=== PATIENT | male | born 1930 | race Caucasian/White ===

== ENCOUNTER 2019-01-10 12:54 | Inpatient (IN) ==
--- NOTE | 2019-01-10 13:09 | EKG Report ---
Test Performed on : 01/10/2019 1:03:08 PM Test Reason : chest pain Blood Pressure : / mmHG Vent. Rate : 092 BPM Atrial Rate : 092 BPM P-R Int : 226 ms QRS Dur : 146 ms QT Int : 408 ms P-R-T Axes : -16 -81 073 degrees QTc Int : 504 ms Sinus rhythm. with 1st degree AV block. Left axis deviation Right bundle branch block Septal infarct (cited on or before 07-JAN-2019) Abnormal ECG When compared with ECG of 07-JAN-2019 16:44, (Unconfirmed) WA interval has increased Unconfirmed Result
--- NOTE | 2019-01-10 13:30 | Diag Imaging Result Doc PS360 ---
EXAM: CHEST-2 VIEWS 01/10/2019 HISTORY: chest pain TECHNIQUE: AP upright and lateral chest COMMENT: There is apparent atelectatic change in both lung bases which has not changed since 01/07/2019. IMPRESSION: Bibasilar atelectasis. Electronically signed by Raji Galaviz 01/10/2019 1:27 PM
[2019-01-10 13:40] LABS: BASO# 0.03 X1000 (0.0-0.2); BASO% 0.4 % (0.0-0.8); EOS# 0.16 X1000 (0.0-0.7); EOS% 2.3 % (0.0-10.0); HEMATOCRIT 41.4 % (42.0-52.0); HEMOGLOBIN 13.6 g/dL (14.0-18.0); LYMPH# 1.52 X1000 (1.2-3.4); LYMPH% 22.2 % (20.5-51.1); MCH 31.5 PG (27-31); MCHC 32.9 g/dL (33-37); MCV 95.8 FL (81-99); MONO# 0.73 X1000 (0.11-0.59); MONO% 10.7 % (1.7-9.3); MPV 11.5 FL (7.4-10.4); NEUT% 64.4 % (42.2-75.2); PLT 157 X1000 (130-400); RBC 4.32 XMIL (4.7-6.1); WBC 6.84 X1000 (4.8-10.8)
[2019-01-10 13:48] LABS: INR 1.04; PROTIME 14.5 Seconds (11.0-16.0)
[2019-01-10 13:49] LABS: PTT 31.1 Seconds (22.3-41.8)
[2019-01-10 14:03] LABS: AGAP 14; ALB/GLOB RATIO 1.8; ALBUMIN 4.1 g/dL (3.5-5.0); ALKALINE PHOSPHATASE 42 U/L (32-122); BUN 20 mg/dL (8-22); CHLORIDE 103 mmol/L (98-107); CK PROFILE 128 U/L (24-204); COSMO 284; CREATININE 1.1 mg/dL (0.7-1.2); ESTIMATED GFR > 60; GLUCOSE 107 mg/dL (70-104); GOT 32 U/L (10-34); GPT 28 U/L (10-44); POTASSIUM 4.5 mmol/L (3.5-5.1); SODIUM 141 mmol/L (136-145); TCO2 24 mmol/L (25-35); TOTAL BILIRUBIN 0.66 mg/dL (0.20-1.00); TOTAL PROTEIN 6.4 g/dL (6.3-8.3)
[2019-01-10] MEDS ORDERED: MORPHINE IV PRN (15:14)
[2019-01-10] MEDS ORDERED: ZOFRAN IV PRN (15:14)
[2019-01-10] MEDS ORDERED: TYLENOL PO PRN (15:14)
[2019-01-10] MEDS ORDERED: NITROGLYCERIN SL PRN (15:14)
[2019-01-10] MEDS ORDERED: LASIX IV ONE (16:54)
[2019-01-10] MEDS ORDERED: SYSTANE EYE DROPS BOTH EYES PRN (16:57)
[2019-01-10] MEDS ORDERED: TUMS PO PRN (16:57)
[2019-01-10] MEDS ORDERED: COLACE PO PRN (16:57)
--- NOTE | 2019-01-10 17:45 | HISTORY AND PHYSICAL ---
PRIMARY CARE PROVIDER: Dr. Russ Love and KAMLESH Arias, located in [place] at [facility]. CHIEF COMPLAINT: Left chest sharp pain. HISTORY OF PRESENT ILLNESS: Mr. Nate Mccoy is an 88-year-old male who most recently had a left heart catheterization on November 26, 2018 which showed 3-vessel coronary disease with 100% LAD to RCA and around 50% to 60% in the circumflex, with apparent difficulties trying to get in a stent, so that was unable to be performed. He was recommended or referred to go to Dr. Edmund Espinoza at [facility], but the patient has so far opted out on having bypass surgery. He states that he has had some difficulties, he feels like, since early September after eating bad chicken and having significant dehydration from that. He spent 2 nights at [facility] there and has slowly ever since been having some issues with shortness of breath at rest mostly, and with activity. He has noticed he has had more lower extremity swelling. The right is greater than the left, without tenderness. That has worsened over the last 6 weeks. He has not had any good sleep over the last 2 nights, which he feels can be possibly from his nerves of knowing that he has coronary disease. He states that today around 11:45 he was trying to take some pepperoni pizza out of a Saran [employer] and developed a sudden onset of sharp pain in his left chest. It felt like a pin going straight through his chest, and the pain was 10/10. It lasted for about 30 seconds and then went away, but it was enough to scare him, given his coronary disease, to seek medical attention. His first set of cardiac enzymes here are negative. He does have a medical history of cardiomyopathy or systolic congestive heart failure with an ejection fraction of 40%. His proBNP is elevated. He does have swelling in the lower extremities, with the right greater than the left, but there is really no pulmonary edema on the chest x-ray. So, we are going to admit him overnight for chest pain observation and consult Cardiology. No ST elevations on the EKG. PAST MEDICAL HISTORY: 1. Three-vessel coronary artery disease 100% in the LAD and the RCA and in the circumflex 50% to 60%. No cardiac interventions. 2. Hypertension. 3. Cardiomyopathy. 4. Systolic congestive heart failure with ejection fraction of 40%. 5. Hyperlipidemia. 6. BPH. 7. GERD. 8. Chronic constipation. 9. Nuclear radiation exposure in the past at [facility] in the [facility]. PAST SURGICAL HISTORY: He has had 3 right inguinal hernia repairs and 1 left inguinal hernia repair, cholecystectomy, melanoma removed off the right chest wall, bilateral cataracts along with silicone implants in the eyes. SOCIAL HISTORY: He quit smoking 40 years ago. Prior to that he smoked about 20 years, and it was just 1 cigarette per day. He states he is Hindu, and he drinks white wine on a very rare occasion, maybe once a year or less than that. Denies any alcohol abuse other that just that very small amount of white wine that he can drink from time to time. He was a man in the [employer]. 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 He said he started the around the [place] War and has never been in a ship. He cannot swim. He is currently living in [place] and still driving. FAMILY HISTORY: Mother's side of the family: She from old age, but her father from kidney disease and coronary disease. His father from heart failure at 69. His father's father also had congestive heart failure. His sister had sclerosing cholangitis and is now status post liver transplant. His brother had bladder cancer. ALLERGIES: No known drug allergies. HOME MEDICATIONS: 1. Altace 5 mg p.o. twice daily. 2. Aspirin 81 mg p.o. daily 3. Dutasteride 0.5 mg p.o. daily. 4. Atorvastatin 40 mg p.o. daily. 5. Docusate sodium 1 to 3 tabs every 24 hours p.r.n. 5. Systane eye drops p.r.n. 6. Metoprolol 25 mg p.o. twice daily. 7. Tums 200 mg as needed. REVIEW OF SYSTEMS: A 14-point review of systems was completed, and all are negative except for those mentioned above in the HPI. PHYSICAL EXAMINATION: VITAL SIGNS: Temperature 98.0, heart rate 92, respiratory rate 16, blood pressure 154/83, O2 saturation 98% on room air. GENERAL: Mr. Nate Mccoy is an 88-year-old male. He is in no acute distress. He is sitting comfortably on the side of the bed. He is able to answer all questions appropriately. He is very talkative. HEENT: Atraumatic, normocephalic. Pupils equal, round, and reactive to light. Extraocular movements intact. Mucous membranes are moist. NECK: Trachea midline. CARDIOVASCULAR: S1 and S2, regular rate and rhythm. No rubs, gallops or murmurs. He has +2 lower extremity edema, but the right seems to be a little more than the left. He has +2 radial pulses, +2 dorsalis pedis pulses, mild JVD. Carotid bruits negative. HEENT: Atraumatic, normocephalic. Pupils equal, round, and reactive to light. Extraocular movements intact. Mucous membranes are moist. NECK: Trachea midline. PULMONARY: Clear to auscultate. Bilateral breath sounds. No accessory muscle use or work of breathing noted. GI: Soft, nontender, nondistended. Positive bowel sounds x4. EXTREMITIES: Moves all extremities equally. Full range of motion. NEUROLOGIC: A O x3. Follows commands. Sensory is intact. SKIN: Warm, dry and intact. LABORATORY DATA: White blood cells 6000, hemoglobin 13, hematocrit 41, platelet count 157. INR is 1.04. Sodium is 141, potassium 4.5, BUN 20, creatinine 1.1, glucose 107, calcium 9.0. Bilirubin 0.66, AST 32, ALT 28, CK 128, troponin (one set) 0.014, proBNP 9924, albumin 4.1. IMAGING: Chest x-ray showed bibasilar atelectasis. EKG: Sinus rhythm with a first-degree AV block. Rate is 92, QTc 504. ASSESSMENT/PLAN: 1. Atypical chest pain that was very short lived, but this is in the setting of a 3-vessel severe coronary artery disease in a patient who has not had any type of revascularization intervention and is currently turning down coronary artery bypass grafting. So we will continue with aspirin, statin and beta servando and consult Cardiology. He states that the chest pain lasted for about 30 seconds and then essentially went away, and he has not felt it since. He feels fine now. 2. It is looking he could be having some acute on chronic systolic congestive heart failure. He does have some mild jugular venous dilatation, and his proBNP is up. He has not had good sleep over the last 2 nights, and he has more swelling in the lower extremities, so we will probably give him a dose of Lasix IV just a 1-time 40 mg dose, and maybe he can get a little sleep tonight with some fluid off. Chest x-ray looks okay. There is no obvious pulmonary edema. 3. Hypertension. Will continue home medications. Apparently he just recently started the Altace a couple of months ago, and he says he has a chronic cough, and he still has a cough, so we may need to consider changing that medicine. 4. Benign prostatic hypertrophy. Continue home medications. 5. Hyperlipidemia. Continue statin. 6. Constipation. Continue home medications. 7. Gastroesophageal reflux disease. Continue with proton pump inhibitor. 8. Deep venous thrombosis prophylaxis - Lovenox. Dictated by KAMLESH Govea for Edilberto King MD cc: KAMLESH Govea MD
[2019-01-10] MEDS: XANAX PO PRN (18:13)
[2019-01-10] MEDS ORDERED: ALTACE PO SCH (21:00)
[2019-01-10] MEDS: ALTACE PO SCH (21:33)
[2019-01-10] MEDS: TOPROL XL PO SCH (21:33)
[2019-01-11 05:53] LABS: BASO# 0.03 X1000 (0.0-0.2); BASO% 0.5 % (0.0-0.8); EOS# 0.17 X1000 (0.0-0.7); EOS% 2.6 % (0.0-10.0); HEMATOCRIT 41.6 % (42.0-52.0); HEMOGLOBIN 13.5 g/dL (14.0-18.0); LYMPH# 1.41 X1000 (1.2-3.4); LYMPH% 21.5 % (20.5-51.1); MCH 31.7 PG (27-31); MCHC 32.5 g/dL (33-37); MCV 97.7 FL (81-99); MONO# 1.06 X1000 (0.11-0.59); MONO% 16.1 % (1.7-9.3); MPV 11.6 FL (7.4-10.4); NEUT% 59.3 % (42.2-75.2); PLT 150 X1000 (130-400); RBC 4.26 XMIL (4.7-6.1); RDW 13.1 % (11.5-14.5); WBC 6.57 X1000 (4.8-10.8)
[2019-01-11] MEDS: PRILOSEC PO SCH (06:06)
[2019-01-11 06:34] LABS: INR 1.08; PROTIME 14.8 Seconds (11.0-16.0)
[2019-01-11 06:35] LABS: PTT 31.8 Seconds (22.3-41.8)
[2019-01-11 06:36] LABS: AGAP 13; ALB/GLOB RATIO 1.6; ALBUMIN 3.9 g/dL (3.5-5.0); ALKALINE PHOSPHATASE 42 U/L (32-122); BUN 23 mg/dL (8-22); CHLORIDE 102 mmol/L (98-107); CHOLESTEROL 93 mg/dL (0-200); COSMO 288; CREATININE 1.3 mg/dL (0.7-1.2); ESTIMATED GFR 52; GLUCOSE 93 mg/dL (70-104); GOT 28 U/L (10-34); GPT 23 U/L (10-44); HDL 36 mg/dL (35-55); LDL 44 mg/dL; MAGNESIUM 2.1 mg/dL (1.5-2.7); POTASSIUM 3.9 mmol/L (3.5-5.1); SODIUM 143 mmol/L (136-145); TCO2 28 mmol/L (25-35); TOTAL BILIRUBIN 0.68 mg/dL (0.20-1.00); TOTAL PROTEIN 6.3 g/dL (6.3-8.3); TRIGLYCERIDES 67 mg/dL (39-160); VLDL 13 mg/dL
--- NOTE | 2019-01-11 08:01 | EKG Report ---
Test Performed on : 01/11/2019 06:36:01 AM Test Reason : chest pain Blood Pressure : / mmHG Vent. Rate : 082 BPM Atrial Rate : 082 BPM P-R Int : 232 ms QRS Dur : 156 ms QT Int : 442 ms P-R-T Axes : 032 -80 073 degrees QTc Int : 516 ms Sinus rhythm. with 1st degree AV block. Possible Left atrial enlargement Left axis deviation Right bundle branch block Septal infarct (cited on or before 07-JAN-2019) Abnormal ECG When compared with ECG of 10-JAN-2019 17:57, (Unconfirmed) aberrant conduction. is no longer present Unconfirmed Result
--- NOTE | 2019-01-11 08:24 | Diag Imaging Result Doc PS360 ---
EXAM: CHEST-2 VIEWS 01/11/2019 HISTORY: Chest Pain TECHNIQUE: PA and lateral chest COMMENT: Compared to the previous study of 01/10/2019 the lungs are slightly more hyperinflated. There continues to be some apparent atelectasis or pneumonia in the left lower lobe as well as pleural effusions bilaterally. There is atelectasis or pneumonia in the right middle lobe. IMPRESSION: Lateral pleural effusions and atelectasis versus pneumonia. Electronically signed by Raji Galaviz 01/11/2019 8:21 AM
--- NOTE | 2019-01-11 08:36 | EKG Report ---
Test Performed on : 01/10/2019 5:57:51 PM Test Reason : ED. NO EKG ORDER FOR MUSE Blood Pressure : / mmHG Vent. Rate : 096 BPM Atrial Rate : 096 BPM P-R Int : 216 ms QRS Dur : 146 ms QT Int : 396 ms P-R-T Axes : -16 -83 076 degrees QTc Int : 500 ms Sinus rhythm. with 1st degree AV block. with premature atrial complexes. with aberrant conduction. Left axis deviation Right bundle branch block Septal infarct (cited on or before 07-JAN-2019) Abnormal ECG When compared with ECG of 10-JAN-2019 13:03, (Unconfirmed) aberrant conduction. is now present Unconfirmed Result
[2019-01-11] MEDS: LOVENOX SUBQ SCH (08:41)
[2019-01-11] MEDS: ALTACE PO SCH (08:41)
[2019-01-11] MEDS: TOPROL XL PO SCH ×2 (08:41→20:27)
[2019-01-11] MEDS: AVODART PO SCH (08:46)
[2019-01-11] MEDS ORDERED: ALTACE PO SCH (09:00)
[2019-01-11] MEDS ORDERED: LIPITOR PO SCH (09:00)
[2019-01-11] MEDS ORDERED: ASPIRIN PO SCH (09:00)
[2019-01-11] MEDS ORDERED: LASIX PO SCH (10:00)
--- NOTE | 2019-01-11 10:28 | CARDIOLOGY CONSULTATION ---
DATE: 01/11/2019 FAMILY PHYSICIAN: Dr. Kristofer Love. HISTORY OF PRESENT ILLNESS: An 88-year-old gentleman who has had a left heart catheterization 11/26/2018 which revealed significant 3-vessel disease. Patient was evaluated at [facility] by Dr. Obrien and the patient opted not to have any bypass surgery and to continue with medical treatment. He is admitted with having some left-sided sharp chest discomfort and shortness of breath and the left-sided pain he said was sharp which worried him. He came to the emergency room and was [place]. [place] [address] and he was given IV Lasix. Chest x-ray suggestive of pneumonia, heart failure. As far as his symptoms are concerned, he does not complain of having any palpitations. He has been having chronic cough which has been there for some time and he has a dry hacking cough as well. There are no palpitations. There is no dizziness or syncope. Electrocardiogram revealed no acute ST-T changes. REVIEW OF SYSTEMS: A 14-point review of systems was done. Gastrointestinal: There is no history of nausea, vomiting, diarrhea. There is no history of hematemesis or melena. Central nervous system: No focal weakness to suggest a CVA or TIA. Genitourinary: There is no dysuria or hematuria. PAST MEDICAL HISTORY: 1. Coronary artery disease, cardiac catheterization 11/26/2018 revealed total occlusion of the left anterior descending artery, total occlusion of the right coronary artery. Percutaneous intervention was attempted at [facility], and bypass grafting was recommended. The mid left anterior descending artery was diffusely diseased as well. Patient was evaluated by Dr. Obrien. Patient opted to be managed medically. 2. 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 3. Chronic cough. 4. Systolic heart failure. 5. Hypertension. 6. Abnormal electrocardiogram. 7. History of dizziness. 8. Hyperlipidemia. 9. Gastroesophageal reflux disease. 10. Constipation. 11. Nuclear radiation exposure in the past. This was in the [facility]. 12. He had 3 right inguinal hernia repairs, 1 left inguinal repair. 13. Cholecystectomy. 14. Melanoma removal from the right chest. 15. Bilateral cataract surgery. 16. Silicone implants in the eyes. SOCIAL HISTORY: He quit smoking 40 years ago. HOME MEDICATIONS: 1. Altace 5 b.i.d. 2. Enteric-coated aspirin 81. 3. Atorvastatin 40. 4. Sustain eyedrops. 5. Metoprolol 25 b.i.d. 6. Tums. PHYSICAL EXAMINATION: Vital Signs: Blood pressure was 150/80. Cardiovascular System: Normal jugular venous pressure. First and second heart sounds were heard. There is a faint systolic murmur. Respiratory System: Normal air entry. There was course scattered crepitations. Abdomen: Soft, nontender. There was no guarding or rigidity. Bowel sounds were heard. Central nervous system: Alert and oriented, was moving all 4 extremities. Extremities: No pedal edema. HEENT: Atraumatic, normocephalic. Pupils were equal, round, reacting to light. LABORATORY EXAMINATION: BUN 20, creatinine 1.1, glucose 107. WBC 6, hemoglobin 13, hematocrit 41, platelet count of 157,000. IMAGING: Chest x-ray. Bibasilar atelectasis and effusion was noted. ASSESSMENT: 1. Mr. Nate Mccoy is an 88-year-old gentleman who has severe coronary artery disease and the patient was evaluated at [place] with Dr. Obrien. Patient decided to be treated medically. 2. He also has a history of hypertension, ischemic cardiomyopathy, chronic cough. RECOMMENDATIONS: 1. Patient's electrocardiogram did not reveal any acute ST-T changes. There was first-degree AV block, right bundle branch block with left anterior hemiblock. 2. Chest x-ray suggestive of atelectasis versus pneumonia in addition to effusion. He has had chronic cough. There is no history of aspiration. However, we will get a CT scan of his chest without contrast to assess for infiltrate, pneumonia, especially in the middle lobe, and we will start him on Levaquin 500 mg a day. 3. As far as ischemia cardiomyopathy is concerned, he is on beta blockers. We will discontinue the ramipril given his chronic cough and put him on Cozaar 50 mg a day in addition to Lasix 20 mg a day. I have not made any other changes. We will plan to manage him medically. Thank you for the consult. We will follow hospital course. cc: Kevin Landeros MD
[2019-01-11] MEDS: COZAAR PO SCH (10:34)
--- NOTE | 2019-01-11 12:08 | Diag Imaging Result Doc PS360 ---
EXAM: CT THORAX W/O CONTRAST HISTORY: dyspnea, pneumonia TECHNIQUE: CT chest without contrast COMPARISON: None. FINDINGS: There is a small right pleural effusion measuring 2.5 cm posteriorly and inferiorly and an even smaller left pleural effusion measuring 1.0 cm. No cardiomegaly. No thoracic aortic aneurysm. Prominent atherosclerosis. There are multiple calcified mediastinal and hilar lymph nodes with scattered granuloma. There are mildly prominent noncalcified mediastinal nodes. The left hemidiaphragm is elevated. There is atelectasis in the lower lobes, left greater than right. There may be small underlying infiltrates as well. IMPRESSION: 1.Small pleural effusions 2.Prominent atherosclerosis 3.There is evidence of a prior granulomatous infection 4.Basilar atelectasis and possibly small underlying infiltrate in the left lower lobe This exam was performed using automated exposure control, adjustment of mA or kV according to patient size, and/or use of iterative reconstruction technique. Electronically signed by Damir Butt 01/11/2019 12:06 PM
--- NOTE | 2019-01-11 12:29 | PROVIDER DOCUMENTATION ---
This chart was entered by Josiane Thompson Scribe, acting as scribe for Olga Miranda MD. HPI-Chest Pain - General Chief Complaint: Chest Pain Stated Complaint: chest pain Time Seen by Provider: 01/10/19 13:05 Source: patient, EMS Allergies/Adverse Reactions: Patient Allergies Allergy/AdvReac Type Severity Reaction Status Date / Time No Known Allergies Allergy Verified 01/07/19 18:25 Home Medications: Home Medication List Medication Instructions Recorded Confirmed Last Taken Type ATORVAstatin [Lipitor] 40 mg PO DAILY 01/07/19 01/07/19 Unknown History Dutasteride 0.5 mg PO 01/07/19 Unknown History Metoprolol Succinate E.r. [Toprol 25 mg PO DAILY 01/07/19 01/07/19 Unknown History Xl] Ramipril [Altace] 2.5 mg PO DAILY 01/07/19 01/07/19 Unknown History Triamterene/Hydrochlorothiazid 37.5 mg PO DAILY 01/07/19 01/07/19 Unknown History [Triamterene-Hctz 37.5-25 mg Tb] - History of Present Illness-CP Nature of Presenting Problem: 88 yowm presents to the ed with c/o chest pain brief (lasted 2 minutes)1 hr prior. pt had sob with pain but sts feels good and all sx are resolved. pt on exam is nontoxic in appearance Location: reports: other (left anterior) Chest Pain Radiation: reports: no radiation Quality of Pain: reports: aching Severity in ED: mild Onset/Duration: 1-3 hours ago Timing: gone now Context/Activities at Onset: reports: light activity Modifying Factors: improves with: nothing Associated Symptoms: reports: shortness of breath. denies: back pain, dizziness , fatigue, fever/chills, nausea, swelling/lump in chest, syncope, vomiting Nitro Today/Relief: no nitro taken today Aspirin Treatment Today: 81 mg x 1 (home), 81 mg x 3 (ems), provided at home, provided by EMS Prior Chest Pain/Cardiac Workup: reports: cardiac cath, other (pt has long cardiac hx) Similar Symptoms Previously?: Yes Recently Seen Here or By Another Healthcare Provider: No Review of Systems - Adult - REVIEW OF SYSTEMS - ADULT Constitutional: denies: chills, fever, fatique Eyes: reports: no symptoms reported Ears, Nose, Mouth & Throat: reports: no symptoms reported Cardiovascular: reports: see HPI, chest pain. denies: palpitations, syncope Respiratory: reports: see HPI, shortness of breath. denies: cough, excessive sputum production, wheezing Gastrointestinal: denies: abdominal pain, diarrhea, nausea, vomiting Genitourinary: reports: no symptoms reported Musculoskeletal: reports: no symptoms reported Integumentary: reports: no symptoms reported Neurological: denies: dizziness/vertigo, headache/migraines Psychiatric: reports: no symptoms reported Endocrine: reports: no symptoms reported Hematologic/Lymphatic: reports: no symptoms reported Allergic/Immunologic: reports: no symptoms reported All Other Systems: Reviewed and Negative Past History - Adult - PAST MEDICAL HISTORY-ADULT Review of Records: reports: Old Records Reviewed, Nursing Assessment Review, Medications Reviewed, Social history reviewed & non-contributory. Major Childhood Illnesses: reports: denies history Cardiovascular: reports: CAD, CHF, HTN, SC (x2) Respiratory: reports: denies history Gastrointestinal: reports: GERD Obstetrical/Gynecological: reports: denies history Genitourinary: reports: denies history Musculoskeletal: reports: denies history Neurological: reports: denies history Psychiatric: reports: denies history Endocrine/Immune: reports: denies history Other Conditions: reports: denies history - PRIOR SURGERIES/PROCEDURES Surgical/Procedure History: reports: cholecystectomy, cardiac stent, hernia repair - IMMUNIZATION STATUS Childhood Immunizations: See Nurse Assessment Flu Vaccine: See Nurse Assessment - FAMILY HISTORY Family History: reviewed, not pertinent - SOCIAL HISTORY Smoking: quit greater than 1 year Substance Use: denies Alcohol Use Frequency: never Living Situation: family Physical Exam-General - PHYSICAL EXAM-ADULT Initial Vital Signs Reviewed: Yes - CONSTITUTIONAL General Appearance: appears well, alert, no apparent distress (all sx resolved) - EYES Eyes: PERRL/EOMI, pink conjunctivae - HEAD, EARS, NOSE, MOUTH & THROAT HENMT: moist mucous membranes, normal ENT inspection - NECK Neck: non-tender, full range of motion, supple, normal inspection - RESPIRATORY Respiratory: chest non-tender, lungs clear, normal breath sounds - CARDIOVASCULAR Cardiovascular: normal peripheral pulses, regular rate, rhythm - GASTROINTESTINAL (ABDOMEN) Abdominal Exam: normal bowel sounds, non tender, soft, no organomegaly, no pulsatile mass - LYMPHATIC Lymphatic: no adenopathy - MUSCULOSKELETAL Back Exam: normal inspection, no CVA tenderness, no vertebral tenderness Extremity: normal range of motion, non-tender, normal gait, normal inspection - SKIN Integumentary: normal color, normal turgor, warm/dry - NEUROLOGIC Neurologic: grossly normal, no motor/sensory deficits - PSYCHIATRIC Psych/Mental Status: normal mood/affect, normal thought content, normal thought process, oriented x 3 - HEART Score HEART Score: History: Moderately Suspicious HEART Score: ECG: Non-Specific Repolarization Disturbance/LBBB/PM HEART Score: Age: > or = 65 Years HEART Score: Risk Factors for Atherosclerotic Disease: 1 or 2 Risk Factors HEART Score: Troponin: < or = Normal Limit Total HEART Score:: 5 Progress - PLAN OF CARE/RESULTS Progress/Plan/Lab Results: Vital Signs - 8 hr 01/10/19 13:21 Temperature 98.0 F Pulse Rate 92 H Respiratory Rate 16 Blood Pressure 154/83 O2 Sat by Pulse Oximetry 98 Laboratory Results - last 24 hr 01/10/19 01/10/19 01/10/19 13:17 13:17 13:17 WBC 6.84 RBC 4.32 L Hgb 13.6 L Hct 41.4 L MCV 95.8 MCH 31.5 H MCHC 32.9 L RDW Std Deviation 13.0 Plt Count 157 MPV 11.5 H Immature Gran % (Auto) 0.0 Neut % (Auto) 64.4 Lymph % (Auto) 22.2 [place] % (Auto) 10.7 H Eos % (Auto) 2.3 Baso % (Auto) 0.4 Immature Gran # (Auto) 0.00 Neut # (Auto) 4.40 Lymph # (Auto) 1.52 [place] # (Auto) 0.73 H Eos # (Auto) 0.16 Baso # (Auto) 0.03 PT INR PTT (Actin FS) Sodium 141 Potassium 4.5 Chloride 103 Carbon Dioxide 24 L Anion Gap 14 BUN 20 Creatinine 1.1 Estimated GFR/1.73 m2 > 60 BUN/Creatinine Ratio 18 Glucose 107 H Calculated Osmolality 284 Calcium 9.0 Total Bilirubin 0.66 AST 32 ALT 28 Alkaline Phosphatase 42 Creatine Kinase 128 Troponin T [id number] Pept 9924 H Total Protein 6.4 Albumin 4.1 Globulin 2.3 Albumin/Globulin Ratio 1.8 01/10/19 01/10/19 13:17 13:17 WBC RBC Hgb Hct MCV MCH MCHC RDW Std Deviation Plt Count MPV Immature Gran % (Auto) Neut % (Auto) Lymph % (Auto) [place] % (Auto) Eos % (Auto) Baso % (Auto) Immature Gran # (Auto) Neut # (Auto) Lymph # (Auto) [place] # (Auto) Eos # (Auto) Baso # (Auto) PT 14.5 INR 1.04 PTT (Actin FS) 31.1 Sodium Potassium Chloride Carbon Dioxide Anion Gap BUN Creatinine Estimated GFR/1.73 m2 BUN/Creatinine Ratio Glucose Calculated Osmolality Calcium Total Bilirubin AST ALT Alkaline Phosphatase Creatine Kinase Troponin T 0.014 Epd-J-Hgkshvgsagm Pept Total Protein Albumin Globulin Albumin/Globulin Ratio Orders Category Date Time Status Cardiac Monitoring DIRECTED Care 01/10/19 12:58 Active Oxygen Therapy- ED Nursing DIRECTED Care 01/10/19 12:58 Active Saline Loc NOW Care 01/10/19 12:58 Active CHEST-2 VIEWS [RAD] Stat Exams 01/10/19 12:58 Completed CBC WITH ELECTRONIC DIFF [HEME] Stat Lab 01/10/19 13:17 Completed CK PROFILE [SP CHEM] Stat Lab 01/10/19 13:17 Completed COMPREHENSIVE METABOLIC PANEL [CHEM] Stat Lab 01/10/19 13:17 Completed PRO B-NATRIURETIC PEPTIDE Stat Lab 01/10/19 13:17 Completed PROTIME WITH INR [COAG] Stat Lab 01/10/19 13:17 Completed PTT [COAG] Stat Lab 01/10/19 13:17 Completed TROPONIN T Stat Lab 01/10/19 13:17 Completed CP/SOB/Palp >45 yrs of Age Stat Oth 01/10/19 12:58 Ordered EKG [EKG] Stat Ther 01/10/19 12:57 Draft pt was told by 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 IMPRESSION: Bibasilar atelectasis. Electronically signed by Raji Galaviz 01/10/2019 1:27 PM 01/10/19 1327 Interpreting Physician: Raji Galaviz MD Dictated Date/Time: 01/10/19 1327 cc: Olga Miranda MD; Kristofer Love) - CONSULTS/PCP/HOSPITALIST Notification #1 *Consult/PCP/Hospitalist*: dr lion cardio Time Discussed: 14:47 Reason/Comments: phone consult #2 Consult: hospitalist dr maria Time Discussed: 15:00 (dr lion will consult) Consult Disposition: Admit Departure - Departure Date of Disposition Decision: 01/10/19 Time of Disposition Decision: 15:02 DIAGNOSIS: Shortness of breath Chest pain Qualifiers: Chest pain type: unspecified Qualified Code(s): R07.9 - Chest pain, unspecified Disposition: ADMITTED INPATIENT 09 Certified Medical Emergency: Emergent Condition: Stable Additional Freetext Instructions: ED Follow Up Instructions: You have been treated by a care provider in the Emergency Department. These instructions are being provided to you so you can have an understanding of how to care for yourself upon discharge. Upon discharge from the Emergency Department, you are responsible for making arrangements for follow-up care by a physician of your choice. Take all prescribed medications as directed. Return to the Emergency Department immediately for any new or worsening symptoms. You may call the Physician Referral phone number at [phone] to obtain a list of Physicians who are taking new patients. Referrals and Follow-Ups: Kristofer Love [Primary Care Provider] - - Critical Care Note This patient required my direct & personal management of CC.: No Attestation - Physician/ CHRISTIAN Attestation Patient care was provided by Advanced Practice Provider:: No The physician spent face to face time with patient:: Yes Advanced Practice Provider documentation review:: Supervising physician onsite and consulted in the evaluation and care of this patient. The physician did have a face to face encounter with the patient. This chart was documented by the indicated scribe, (Josiane Thompson Scribe) and accurately reflects the services I performed and decisions made by me, Olga Miranda MD, as attested by the provider's signature.
[2019-01-11] MEDS ORDERED: LEVAQUIN PO SCH (14:00)
--- NOTE | 2019-01-11 14:19 | PROGRESS NOTE ---
DATE: 01/11/2019 SUBJECTIVE: The patient is awake, not in any obvious distress. OBJECTIVE: Vital signs: Temperature is 98.1 degrees, pulse 79, respirations 18, blood pressure is 143/78, oxygen saturation is 98%. HEENT: Atraumatic, normocephalic. Cardiovascular: S1, S2. Respiratory: Has evidence of good entry bilaterally. Abdomen: Soft, nontender. No masses felt. Extremities: No evidence of edema. Central nervous system: No obvious focal deficits noted. LABORATORY DATA: WBC 6.57, hematocrit is 41.6 with a platelet count of 150,000. Sodium 143, potassium 3.9, chloride is 102, bicarb 28, BUN is 23, creatinine is 1.3. X-ray of the chest shows lateral pleural effusions and atelectasis versus pneumonia. CT scan of the chest shows small pleural effusions, primary atherosclerosis, evidence of prior granulomatous infection as well as basilar atelectasis and possibly small underlying infiltrate in the left lower lobe. ASSESSMENT AND PLAN: 1. Atypical chest pain. Maintain the patient on cardiac monitoring. Continue aspirin, beta servando as well as a statin. Cardiology is following. The patient does have a history of coronary artery disease and has declined coronary artery bypass graft. He indicates that he had percutaneous coronary intervention in the past but was not successful. 2. Probable pneumonia. Chest CT shows bibasilar atelectasis and possible small underlying infiltrate in the left lower lobe. The patient has been started on antibiotics, Levaquin 500 mg p.o. daily. We will obtain sputum as well as blood cultures. 3. Chronic systolic heart failure. Stable. Monitor intake and output as well as daily weights. Use diuretics if needed. 4. Hyperlipidemia. Continue statin. 5. Hypertension. Continue current antihypertensive regimen. 6. Benign prostatic hypertrophy. Continue Avodart. 7. Gastroesophageal reflux disease. Continue proton pump inhibitor. 8. Deep vein thrombosis prophylaxis. Lovenox. cc: Edilberto King MD
[2019-01-11] MEDS: XANAX PO PRN (20:27)
[2019-01-12] MEDS: PRILOSEC PO SCH ×2 (05:38→06:03)
[2019-01-12 05:50] LABS: BASO# 0.03 X1000 (0.0-0.2); BASO% 0.5 % (0.0-0.8); EOS# 0.17 X1000 (0.0-0.7); HEMATOCRIT 39.3 % (42.0-52.0); LYMPH# 1.42 X1000 (1.2-3.4); LYMPH% 25.4 % (20.5-51.1); MCH 32.1 PG (27-31); MCHC 33.1 g/dL (33-37); MONO# 0.77 X1000 (0.11-0.59); MONO% 13.8 % (1.7-9.3); MPV 11.3 FL (7.4-10.4); NEUT% 57.3 % (42.2-75.2); PLT 141 X1000 (130-400); RBC 4.05 XMIL (4.7-6.1); RDW 12.8 % (11.5-14.5); WBC 5.59 X1000 (4.8-10.8)
[2019-01-12 06:25] LABS: ALB/GLOB RATIO 1.6; ALBUMIN 3.7 g/dL (3.5-5.0); CALCIUM 8.8 mg/dL (8.8-10.2); CREATININE 1.4 mg/dL (0.7-1.2); MAGNESIUM 2.1 mg/dL (1.5-2.7); POTASSIUM 3.6 mmol/L (3.5-5.1); TOTAL BILIRUBIN 0.8 mg/dL (0.20-1.00)
[2019-01-12] MEDS ORDERED: DESYREL PO PRN (07:52)
[2019-01-12] MEDS: LOVENOX SUBQ SCH (09:12)
[2019-01-12] MEDS: COZAAR PO SCH (09:12)
[2019-01-12] MEDS: AVODART PO SCH (09:12)
[2019-01-12] MEDS: TOPROL XL PO SCH ×2 (09:12→20:34)
[2019-01-12] MEDS: ASPIRIN PO SCH (09:12)
--- NOTE | 2019-01-12 15:18 | PROGRESS NOTE ---
DATE: 01/12/2019 INTERVAL HISTORY: Patient with no further chest pain. Denies dyspnea. Ambulating well without difficulty. No new complaints. No acute events overnight. REVIEW OF SYSTEMS: Twelve point review of systems negative, except as per interval history. LABS: WBCs 5.5, hemoglobin 13.0, hematocrit 39.3, platelets 141. Sodium 142, potassium 3.6, BUN 28, creatinine 1.4, glucose 82. LFTs unremarkable. IMAGING: CT chest from yesterday showing small pleural effusions and basilar atelectasis, left greater than right. VITALS: T-max 98.3 degrees, pulse 78, respirations 18, blood pressure 128/76, O2 saturation 98% on room air. PHYSICAL EXAMINATION: General: No acute distress. Vitals as above. HEENT: Normocephalic, atraumatic. Moist mucous membranes. Neck: No cervical adenopathy. Cardiovascular: Regular rate and rhythm. No murmurs, rubs or gallops. Pulmonary: Clear to auscultation bilaterally. No wheezing, rales or rhonchi noted. Abdomen: Soft, nontender, nondistended. Bowel sounds positive. Extremities: Peripheral pulses intact. No clubbing, cyanosis or edema. Neurologic: Cranial nerves grossly intact. No focal deficits identified. Psychiatric: Normal mood and affect. Awake, alert, oriented x3. Skin: No new rashes or lesions identified. ASSESSMENT AND PLAN: 1. Atypical chest pain. Troponins negative times four. No major issues on electrocardiogram or telemetry. He does have known 3-vessel coronary artery disease and has previously been evaluated for bypass, but the decision was made to manage medically. Chest pain has essentially resolved at this point. Continue aspirin, beta servando and statin. Cardiology following. 2. Atelectasis. Chest CT showing likely atelectasis. No leukocytosis. No fevers. Satting very well on room air. Suspicion for pneumonia is quite low. Cultures with no growth to date. Will monitor off of antibiotics. 3. Chronic systolic congestive heart failure. Last known ejection fraction 34 to 40. No signs of exacerbation at this time. Continue to monitor. 4. Hyperlipidemia. Continue statin. 5. Hypertension. Good control on current regimen with losartan, Toprol-XL. Continue to monitor. 6. Benign prostatic hypertrophy. Continue Avodart. 7. Gastroesophageal reflux disease. Continue proton pump inhibitor. 8. Possibly acute kidney injury. Patient with increasing creatinine over the last couple days, likely diuretic related. Will hold further diuresis and monitor. 9. Disposition: Patient's chest pain resolved. Ambulating well without difficulty. No dyspnea. If kidneys improve with holding diuresis, then can likely be discharged home tomorrow.
[2019-01-12] MEDS ORDERED: LIPITOR PO SCH (21:00)
[2019-01-13] MEDS: PRILOSEC PO SCH (06:01)
[2019-01-13] MEDS: AVODART PO SCH (08:52)
[2019-01-13] MEDS: ASPIRIN PO SCH (08:53)
[2019-01-13] MEDS: COZAAR PO SCH (08:53)
[2019-01-13] MEDS: TOPROL XL PO SCH (08:53)
[2019-01-13] MEDS: LOVENOX SUBQ SCH (08:53)
[2019-01-13 11:38] VITALS: BP 135/70
--- NOTE | 2019-01-13 13:44 | DISCHARGE SUMMARY ---
ADMISSION DATE: 01/10/2019 DISCHARGE DATE: PRINCIPAL DIAGNOSIS: Atypical chest pain. SECONDARY DIAGNOSES: 1. Coronary artery disease (3-vessel disease). 2. Hypertension. 3. Cardiomyopathy. 4. Chronic systolic heart failure. 5. Hyperlipidemia. 6. Benign prostatic hypertrophy. 7. Gastroesophageal reflux disease. 8. Chronic constipation. 9. Cough. 10. Probable pneumonia. DISCHARGE MEDICATIONS: Levaquin 500 mg p.o. daily for the next 5 days. Dutasteride 0.5 g p.o. daily. [*]5 mg p.o. twice a day. Atorvastatin 40 mg p.o. daily. Calcium carbonate 1 oral as needed daily. Metoprolol 25 mg p.o. twice a day. Systane eye drops to use as directed. Aspirin 81 mg p.o. daily. Colace 1 as needed. CONSULTATIONS DONE DURING THIS HOSPITAL STAY: Kevin Landeros MD, Cardiology. PROCEDURES DONE DURING THIS HOSPITAL STAY: Chest CT, 01/11/2019. HOSPITAL COURSE: Mr. Nate Mccoy is an 88-year-old male, who presented to the hospital because of brief left-sided chest pain. Acute VT was ruled out with negative cardiac enzymes. The patient does have a history of coronary artery disease and has [*]CABG in the past. He also indicates that PCI attempted in the past and was not successful. Had a CT scan of the chest, which showed bibasilar atelectasis and possible small underlying infiltrate in the left lower lobe. The patient was started on antibiotics for probable pneumonia. VITAL SIGNS: Today, temperature 97.7 degrees, pulse 74, respirations 18, blood pressure 134/70, oxygen saturation 99%. DISPOSITION: The patient can be discharged home. FOLLOW-UP: To follow up with primary care physician in the outpatient. DISCHARGE INSTRUCTIONS: Of note his renal function is slightly impaired with a BUN of 28 and creatinine 1.4. We will encourage him to drink fluids and follow up with primary care physician to check on renal function in the outpatient. He also needs to complete antibiotic treatment in the outpatient as well. cc: Edilberto King MD
== END 2019-01-13 14:30 | disposition home or self-care (01) | DRG 313 ==
LOC: SUPCPDRO → ED 12:54 → SUATTDRO 15:29 → EDIPHOLD 15:29 → 3S 20:21
PROVIDERS: ATTEND Internal Medicine
CPT/HCPCS: 71010; 71020; 71045; 71046; 71250; 80048; 80053; 80061; 81001; 82550; 82805; 83735; 83880; 84484; 85025; 85610; 85730; 87040; 87070; 87205; 93005; 93010; 96374; 99284; 99285; A9270; J1650; J1940